=== PATIENT | female | born 1940 | race Caucasian/White ===

== ENCOUNTER → 2019-04-17 07:17 | Outpatient (CLI) | payer MEDICARE, OTHER, SELFPAY | PROVIDERS: Referring Provider Student in an Organized Health Care Education/Training Program; Visit Provider Student in an Organized Health Care Education/Training Program | DX: R06.09 Other forms of dyspnea (principal) ==

== ENCOUNTER → 2019-04-17 07:25 | Outpatient (CLI) | payer MEDICARE, OTHER, SELFPAY ==
--- NOTE | 2019-04-17 | DI.NM.S_ITS ---
PROCEDURE: NM VEGA PERF SPECT REST & STR Rest and exercise myocardial perfusion SPECT with gated imaging and ejection fraction RADIOPHARMACEUTICAL: 9.7 mCi Tc-99m sestamibi IV at rest and 27.1mCi Tc-99m sestamibi IV at peak exercise. A [id number] was performed. INDICATIONS: J45.40 TECHNIQUE: Radiopharmaceutical was injected at peak stress test, and also at rest. SPECT images were obtained. SPECT myocardial perfusion images were displayed in short axis, horizontal long axis, and vertical long axis views. Gated images were reviewed using [employer] software. COMPARISON: None CARDIAC STRESS: A standard Mohamud treadmill exercise tolerance test was performed by the patient under the supervision of an attending staff. The patient exercised for 6 minutes and 31 seconds; functional aerobic impairment (RUTH) is -32 %. Hemodynamic data: There is normal blood pressure and heart rate response to exercise stress. Patient achieved 96% of maximum predicted heart rate at peak exercise. Symptoms: Patient denied chest pain during exercise. EKG: No diagnostic EKG changes of ischemia; no ectopy. FINDINGS: Raw data: There is good myocardial labeling by radiotracer. No significant motion artifacts. Sgri-ts-ykngc ratio is 0.38 (normal is less than 0.38 for sestamibi tracer, and less than 0.50 for thallium tracer). Left ventricle function: Gated images demonstrate normal left ventricle wall thickening. No segmental wall motion abnormality. No transient ischemic dilation; TID is 0.9 (normal less than 1.3). The left ventricle resting end-diastolic volume is 89 mL. Left ventricle stress ejection fraction is 73% ; normal values are above 45%. Myocardial perfusion: There is normal distribution of activity in the left ventricular myocardium. Small breast attenuation artifact. No fixed or reversible perfusion defects. IMPRESSION: -Normal myocardial perfusion study with no evidence of ischemia or scar. -Great exercise capacity. -Overall this is a low risk study. Dictated by: Jasson Childress M.D. on 04/17/2019 at 19:25 Approved by: Jasson Childress M.D. on 04/17/2019 at 19:28
--- NOTE | 2019-04-19 16:50 | PM.PFT.1 ---
Pulmonary Function Test Referral & Results Date Patient Seen: 04/17/19 Requesting provider: Kavitha Temple Results: The spirometry demonstrates an FVC of 2.7 a L which is 91% of predicted. The FEV1 was measured at 2.06 L which is 91% of predicted. The FEV1/FVC ratio was 74 which is 100% of predicted. Lung volumes show an SVC of 2.80 L which is 93% of predicted. Interpretation: This study demonstrates probably normal spirometry
== END ==
PROVIDERS: Referring Provider Internal Medicine Critical Care Medicine; Visit Provider Internal Medicine Critical Care Medicine
DX: J45.40 Moderate persistent asthma, uncomplicated (principal); R06.09 Other forms of dyspnea
CPT/HCPCS: 78452; 93017; 94010; A9502